=== PATIENT | female | born 2000 | race Hispanic/Latino ===

== ENCOUNTER 2021-01-09 13:35 | Emergency (ER) | payer MEDICAID, SELFPAY ==
[2021-01-09 15:19] LABS: SARS-CoV-2 NAA Rapid Test Not Detected (NotDetected)
== END 2021-01-09 16:07 | disposition home or self-care (01) ==
LOC: ERS 13:35
DX: J06.9 Acute upper respiratory infection, unspecified (principal); H10.9 Unspecified conjunctivitis; Z20.822 Contact with and (suspected) exposure to COVID-19
CPT/HCPCS: 0240U; 99283

== ENCOUNTER 2023-06-08 08:29 | Emergency (ER) | payer OTHER, SELFPAY ==
[2023-06-08] MEDS ORDERED: Acetaminophen 500 MG TAB ONE (08:57)
== END 2023-06-08 09:40 | disposition home or self-care (01) ==
LOC: ERS 08:29
DX: S50.02XA Contusion of left elbow, initial encounter (principal); V89.2XXA Person injured in unspecified motor-vehicle accident, traffic, initial encounter